=== PATIENT | female | born 1995 ===

== ENCOUNTER 2018-06-08 21:11 | Emergency (ER) | payer MEDICAID ==
[2018-06-08 21:21] VITALS: O2SAT 100
--- NOTE | 2018-06-08 23:32 | ED PDOC ---
HPI: Chest Pain Time Seen by Provider: 06/08/18 21:54 Chief Complaint (Nursing): Chest Pain History Per: Patient History/Exam Limitations: no limitations Onset/Duration Of Symptoms: Days Current Symptoms Are (Timing): Still Present Additional Complaint(s): 23 year old with no PMHx presenting with chest pain and back pain, states that she feels it on both sides, worse with movement and changing positions. States when she takes a deep breath and expands her rib cage, the pain worsens. Denies sweats, cough, chills, OCP use, recent travel/immobilization. Past Medical History Reviewed: Historical Data, Nursing Documentation, Vital Signs Vital Signs: Last Vital Signs Temp 97.8 F 06/08/18 21:19 Pulse 90 06/08/18 21:35 Resp 18 06/08/18 21:19 BP 140/78 06/08/18 21:35 Pulse Ox 100 06/08/18 21:19 - Medical History PMH: No Chronic Diseases - Family History Family History: States: Unknown Family Hx - Immunization History Hx Tetanus Toxoid Vaccination: No Hx Influenza Vaccination: No Hx Pneumococcal Vaccination: No - Home Medications Home Medications: Ambulatory Orders Medication Instructions Recorded Advil 2 tab PC 05/23/14 Nitrofurantoin Macrocrystals 1 cap PO BID #14 cap 05/23/14 [Macrobid] Naproxen [Naprosyn] 500 mg PO BID #30 tablet 06/08/18 - Allergies Allergies/Adverse Reactions: Allergies Allergy/AdvReac Type Severity Reaction Status Date / Time No Known Allergies Allergy Unverified 06/08/18 21:18 DAT Risk Score for UA/NSTEMI - DAT Risk Score Age > 64: NO 3 or more CAD Risk Factors: NO Known CAD (Stenosis greater than 50%): NO Aspirin use in past 7 days: NO Severe Angina: NO EKG ST changes greater than 0.5mm: NO Positive Cardiac Marker: NO DAT Score: 0 Risk %: 5% Wells Criteria for PE - Wells Criteria for Pulmonary Embolism Clinical Signs and Symptoms of DVT: No P.E is #1 Diagnosis, or Equally Likely: No Heart Rate >100: No Immobilization at least 3 days;Surgery previous 4 weeks: No Previous, objectively diagnosed PE or DVT: No Hemoptysis: No Malignancy w/treatment within 6 months, or palliative: No Total Score: 0 Review of Systems ROS Statement: Except As Marked, All Systems Reviewed And Found Negative Cardiovascular: Positive for: Chest Pain Musculoskeletal: Positive for: Back Pain Physical Exam - Reviewed Nursing Documentation Reviewed: Yes Vital Signs Reviewed: Yes - Physical Exam Appears: Positive for: Well, Non-toxic, No Acute Distress Head Exam: Positive for: ATRAUMATIC, NORMAL INSPECTION, NORMOCEPHALIC Skin: Positive for: Normal Color, Warm, DRY Eye Exam: Positive for: EOMI, Normal appearance, PERRL ENT: Positive for: Normal ENT Inspection Neck: Positive for: Normal, Painless ROM Cardiovascular/Chest: Positive for: Regular Rate, Rhythm. Negative for: Chest Non Tender (Tenderness to palpation of bilateral chest wall) Respiratory: Positive for: CNT, Normal Breath Sounds Gastrointestinal/Abdominal: Positive for: Normal Exam, Soft Back: Positive for: Normal Inspection Extremity: Positive for: Normal ROM Neurological/Psych: Positive for: Awake, Alert, Normal Tone - ECG ECG: Positive for: Interpreted By Me, Viewed By Me ECG Rhythm: Positive for: Normal QRS, Normal ST Segment, Sinus Rhythm Rate: 93 O2 Sat by Pulse Oximetry: 100 Pulse Ox Interpretation: Normal Medical Decision Making Medical Decision Makin23 year old with no PMHx presenting with chest back pain --Patient very comfortable appearing, talking on phone, vitals stable --Very atypical for cardiac chest pain, most likely MSK, not concerned for PE, PERC negative --Will check EKG and CXR, NSAID and muscle relaxant for pian 1130PM --CXR negative, EKG nonischemic --Patient is feeling better, advised to continue NSAID usage Disposition - Clinical Impression Clinical Impression: Atypical chest pain - Disposition Referrals: [facility] [place] [Outside] Disposition: Routine/Home Disposition Time: 23:38 Condition: IMPROVED Prescriptions: Naproxen [Naprosyn] 500 mg PO BID #30 tablet Instructions: Chest Pain That Is Not Caused by the Heart (DC), Costochondritis Forms: [facility] ([facility])
[2018-06-08 23:46] VITALS: BP 128/80; PULSE 91; RESP 16; TEMP 98.4
--- NOTE | 2018-06-09 08:18 | RAD ---
Date of service: 06/08/2018 HISTORY: chest pain COMPARISON: No prior. TECHNIQUE: Chest PA and lateral FINDINGS: LUNGS: No active pulmonary disease. PLEURA: No significant pleural effusion identified. No pneumothorax apparent. CARDIOVASCULAR: No aortic atherosclerotic calcification present. Normal cardiac size. No pulmonary vascular congestion. OSSEOUS STRUCTURES: No significant abnormalities. VISUALIZED UPPER ABDOMEN: Normal. OTHER FINDINGS: None. IMPRESSION: No active disease.
--- NOTE | 2018-06-09 21:09 | CARD ---
APPROVED REPORT Date of service: 06/08/2018 EKG Measurement Heart [id number] <Conclusion> Normal sinus rhythm Normal ECG
== END 2018-06-08 23:46 | disposition home or self-care (01) ==
LOC: H.ER 21:11
DX: R07.9 Chest pain, unspecified (principal)